=== PATIENT | female | born 1945 | race Caucasian/White ===

== ENCOUNTER 2018-12-29 08:17 | Day surgery (SDC) | payer OTHER ==
[2018-12-29] MEDS ORDERED: Ringers Lactate 1,000 ML IV ONE (08:34)
[2018-12-29] MEDS ORDERED: FENTANYL CITR 100 MCG/2 ML ONE (10:40)
[2018-12-29] MEDS ORDERED: PROPOFOL 200 MG/20 ML VIAL IV ONE ×2 (10:40→11:18)
[2018-12-29] MEDS ORDERED: LIDOCAINE 2% MPF 5 ML VIAL ONE (10:41)
[2018-12-29] MEDS ORDERED: MIDAZOLAM HCL 2 MG/2 ML INJ ONE (10:41)
[2018-12-29] MEDS ORDERED: LIDOCAINE 1% W/EPI 1:100,000 MDV 20 ML VIAL ONE (10:44)
[2018-12-29] MEDS ORDERED: NA CHLORIDE 0.9% 1,000 ML ONE (10:45)
--- NOTE | 2018-12-29 11:08 | EKG ---
Test Date: 2018-12-29 Test Time: 09:19:28 Packaging Line Attendant: MOOK MEASUREMENT RESULTS: Intervals: Rate: 64 MO: 200 QRSD: 74 QT: 398 QTc: 410 [place]: P: 64 MO: 200 QRS: -3 T: 23 INTERPRETIVE STATEMENTS: Normal sinus rhythm Cannot rule out Anterior infarct, age undetermined Abnormal ECG No previous ECG available for comparison Electronically Signed On 12-29-18 11:06:52 CDT by Rex Gruber
== END 2018-12-29 12:17 | disposition home or self-care (01) ==
LOC: OR 08:17
PROVIDERS: ATTEND Obstetrics & Gynecology
PROC: 0UJD8ZZ Inspection of Uterus and Cervix, Via Natural or Artificial Opening Endoscopic (ICD-10-PCS; 2018-12-29)
PROC: 0UDB7ZX Extraction of Endometrium, Via Natural or Artificial Opening, Diagnostic (ICD-10-PCS; principal; 2018-12-29 09:30)
DX: N95.0 Postmenopausal bleeding (principal); N95.2 Postmenopausal atrophic vaginitis; I10 Essential (primary) hypertension; I25.10 Atherosclerotic heart disease of native coronary artery without angina pectoris; Z87.410 Personal history of cervical dysplasia; Z87.891 Personal history of nicotine dependence; Z82.49 Family history of ischemic heart disease and other diseases of the circulatory system
CPT/HCPCS: 93005; 36415; 84132; 88305; 58558; J2704 ×2; J2250; J3010; J7030

== ENCOUNTER 2020-12-21 17:03 | Emergency (ER) | payer OTHER ==
--- NOTE | 2020-12-21 18:45 | RAD REPORT ---
EXAM DESCRIPTION: Judy Yeh And Leanne (2 Views)12/21/2020 6:32 pm CLINICAL HISTORY: Palpitation COMPARISON: 2019 FINDINGS: Calcified granuloma left lung. The lungs appear clear of acute infiltrate. The heart is normal size IMPRESSION: No acute abnormalities displayed
[2020-12-21 19:03] LABS: Absolute Lymphocytes (CBC) 0.7 K/uL (0.7-4.9); Basophils % 0.7 % (0-1.3); Hematocrit 40.6 % (36.0-45.0); Lymphocytes % 12.3 % (15.3-44.8); MPV 7.4 fL (7.6-11.3)
[2020-12-21 19:05] LABS: Protime INR 0.91
[2020-12-21 19:17] LABS: ALT/SGPT 24 U/L (12-78); AST/SGOT 17 U/L (15-37); Albumin 4.1 g/dL (3.4-5.0); Alkaline Phosphatase 59 U/L (45-117); BUN Blood Urea Nitrogen 18 mg/dL (7-18); Bicarbonate 27 mmol/L (21-32); Bilirubin Direct < 0.1 mg/dL (0-0.2); Bilirubin Total 0.3 mg/dL (0.2-1.0); Glucose Level 101 mg/dL (74-106); Magnesium 2.2 mg/dL (1.8-2.4); NT PRO-BNP 265 pg/mL (<450); Potassium 4.2 mmol/L (3.5-5.1); Protein, Total 7.8 g/dL (6.4-8.2); Sodium Level 141 mmol/L (136-145); Troponin (Emerg Dept Use Only) < 0.02 ng/mL (0.0-0.045)
[2020-12-21 19:57] LABS: Urine Blood Trace-intact (Negative); Urine Glucose Negative (Negative); Urine Protein Negative (Negative); Urine Specific Gravity 1.025 (1.005-1.030); Urine pH 5.5 (5.0-7.0)
--- NOTE | 2020-12-21 20:01 | RAD REPORT ---
EXAM DESCRIPTION: CT - Head Brain Wo Cont - 12/21/2020 7:43 pm CLINICAL HISTORY: dizziness COMPARISON: 2007 TECHNIQUE: Computed axial tomography of the head was obtained. IV contrast was not requested. All CT scans are performed using dose optimization technique as appropriate and may include automated exposure control or mA/KV adjustment according to patient size. FINDINGS: An intracranial bleed is not seen . The ventricles are normal in caliber. No extra-axial fluid collection is noted. Mild low-density areas within periventricular, deep and subcortical white matter likely represent is chemic changes secondary to small vessel disease. Fluid within the sinuses/ mastoids is not seen. IMPRESSION: No acute intracranial abnormality is seen. If patient's symptoms persist MRI of the bra in would be recommended.
--- NOTE | 2020-12-21 20:54 | EDPHYS ---
Physician Documentation [facility] Name: Isabel Wrihgt Age: 75 yrs Sex: Female : 1945 Arrival Date: 12/21/2020 Time: 17:05 Bed DIS3 Private MD: Joseph Ryder T ED Physician Joce Presley HPI: 12/21 19:31 This 75 yrs old Female presents to ER via Ambulatory with complaints of Blood mh7 Pressure Problem. 19:31 The patient presents with dizziness, lightheadedness. Onset: The symptoms/episode mh7 began/occurred this morning, today. Context: occurred at home, occurred while the patient was standing, just prior to the episode the patient experienced no apparent symptoms. Modifying factors: The symptoms are alleviated by nothing, the symptoms are aggravated by nothing. Associated signs and symptoms: Pertinent positives: Fluctuation of blood pressure, Pertinent negatives: abdominal pain, agitation, ataxia, blurred vision, chest pain, combativeness, confusion, diaphoresis, focal weakness, head injury, headache, nausea, near-syncope, numbness, palpitations, seizure, shortness of breath, syncope, tingling, vomiting. Severity of symptoms: At their worst the symptoms were moderate this morning, in the emergency department the symptoms have resolved and did so earlier today. Patient's baseline: Neuro: alert and fully oriented, Motor: no deficits, Ambulation: walks without assistance, Speech: normal. 19:31 Patient reports episode of dizziness, lightheaded this morning. She also noted mh7 fluctuations in her blood pressure from 90s systolic to 200 systolic during the day. She denies any headache, chest pain, abdominal pain, shortness of breath, nausea, vomiting, fever, cough, numbness/tingling, or weakness. She notes that she has been feeling stressed this week due to abnormal mammogram.. Historical: - Allergies: 18:14 Codeine; kg - Home Meds: 18:14 atenolol 50 mg oral tab 1 tab once daily [Active]; montelukast 10 mg oral tab 1 tab kg once daily [Active]; Benadryl 25 mg Oral cap 1 cap once daily [Active]; - PMHx: 18:14 Hypertension; kg - PSHx: 18:14 None; kg - Immunization history:: Adult Immunizations not up to date, Client reports receiving the 2nd dose of the Covid vaccine, Date received: June 17, 2020 [facility] Client reports receiving the 1st dose of the Covid vaccine, May 2020 [facility]. - Social history:: Smoking status: Patient/guardian denies using tobacco, but has a distant history of tobacco abuse, Patient uses alcohol, weekly. ROS: 19:31 Constitutional: Negative for fever, chills, and weight loss, Eyes: Negative for injury, mh7 pain, redness, and discharge, ENT: Negative for injury, pain, and discharge, Neck: Negative for injury, pain, and swelling, Cardiovascular: Negative for chest pain, palpitations, and edema, Respiratory: Negative for shortness of breath, cough, wheezing, and pleuritic chest pain, Abdomen/GI: Negative for abdominal pain, nausea, vomiting, diarrhea, and constipation, Back: Negative for injury and pain, : Negative for injury, bleeding, discharge, and swelling, MS/Extremity: Negative for injury and deformity, Skin: Negative for injury, rash, and discoloration, Neuro: Negative for headache, weakness, numbness, tingling, and seizure, Psych: Negative for depression, anxiety, suicide ideation, homicidal ideation, and hallucinations, Allergy/Immunology: Negative for hives, rash, and allergies, Endocrine: Negative for neck swelling, polydipsia, polyuria, polyphagia, and marked weight changes, Hematologic/Lymphatic: Negative for swollen nodes, abnormal bleeding, and unusual bruising. 19:31 : Positive for urinary frequency, 2 days ago. Exam: 19:31 Constitutional: This is a well developed, well nourished patient who is awake, alert, mh7 and in no acute distress. Head/Face: Normocephalic, atraumatic. Eyes: Pupils equal round and reactive to light, extra-ocular motions intact. Lids and lashes normal. Conjunctiva and sclera are non-icteric and not injected. Cornea within normal limits. Periorbital areas with no swelling, redness, or edema. Neck: Trachea midline, no thyromegaly or masses palpated, and no cervical lymphadenopathy. Supple, full range of motion without nuchal rigidity, or vertebral point tenderness. No Meningismus. Chest/axilla: Normal chest wall appearance and motion. Nontender with no deformity. No lesions are appreciated. Cardiovascular: Regular rate and rhythm with a normal S1 and S2. No gallops, murmurs, or rubs. Normal PMI, no JVD. No pulse deficits. Respiratory: Lungs have equal breath sounds bilaterally, clear to auscultation and percussion. No rales, rhonchi or wheezes noted. No increased work of breathing, no retractions or nasal flaring. Abdomen/GI: Soft, non-tender, with normal bowel sounds. No distension or tympany. No guarding or rebound. No evidence of tenderness throughout. Back: No spinal tenderness. No costovertebral tenderness. Full range of motion. Skin: Warm, dry with normal turgor. Normal color with no rashes, no lesions, and no evidence of cellulitis. MS/ Extremity: Pulses equal, no cyanosis. Neurovascular intact. Full, normal range of motion. Neuro: Awake and alert, GCS 15, oriented to person, place, time, and situation. Cranial nerves II-XII grossly intact. Motor strength 5/5 in all extremities. Sensory grossly intact. Cerebellar exam normal. Normal gait. Psych: Awake, alert, with orientation to person, place and time. Behavior, mood, and affect are within normal limits. Vital Signs: 17:59 BP 183 / 86; Pulse 86; Resp 20; Temp 97.8(TE); Pulse Ox 96% on R/A; Weight 75.75 kg; kg Height 5 ft. 4 in. (162.56 cm); Pain 0/10; 20:06 BP 183 / 82 LA Supine (auto/reg); Pulse 65; Resp 16; Pulse Ox 100% ; dh4 20:06 BP 173 / 92 LA Standing (auto/reg); Pulse 80; Resp 16; Pulse Ox 100% ; dh4 20:06 BP 165 / 80 LA Sitting (auto/reg); Pulse 67; Resp 16; Pulse Ox 100% on R/A; dh4 17:59 Body Mass Index 28.67 (75.75 kg, 162.56 cm) kg MDM: 20:50 Differential diagnosis: cardiac arrhythmia, CVA, hypovolemia, idiopathic dizziness, mh7 near-syncope, sepsis, syncope, TIA, vertigo, Hypertension, hypotension. Data reviewed: vital signs, nurses notes, lab test result(s), cardiac enzymes, CBC, electrolytes, urinalysis, EKG, radiologic studies, CT scan, plain films. Data interpreted: Pulse oximetry: on room air is 100 %. Interpretation: normal. Counseling: I had a detailed discussion with the patient and/or guardian regarding: the historical points, exam findings, and any diagnostic results supporting the discharge/admit diagnosis, the presence of at least one elevated blood pressure reading (>120/80) during this emergency department visit, lab results, radiology results, the need for outpatient follow up, a law enforcement director, to return to the emergency department if symptoms worsen or persist or if there are any questions or concerns that arise at home. Response to treatment: the patient's symptoms have resolved after treatment, the patient's blood pressure is in an acceptable range, mental status has returned to baseline, the patient no longer shows bradycardia, the patient is not short of breath, the patient is not tachycardic, the patient's pain is gone, the patient's temperature has normalized, the patient is now symptom free, patient is well hydrated. 20:53 Patient medically screened. 7 12/21 18:18 Order name: Basic Metabolic Panel kg 12/21 18:18 Order name: CBC with Diff; Complete Time: 19:37 kg 12/21 18:18 Order name: LFT's; Complete Time: 19:37 kg 12/21 18:18 Order name: Magnesium; Complete Time: 19:37 kg 12/21 18:18 Order name: NT PRO-BNP; Complete Time: 19:37 kg 12/21 18:18 Order name: PT-INR; Complete Time: 19:37 kg 12/21 18:18 Order name: Troponin (emerg Dept Use Only); Complete Time: 19:37 kg 12/21 18:18 Order name: EKG; Complete Time: 18:18 kg 12/21 18:18 Order name: Cardiac monitoring; Complete Time: 18:18 kg 12/21 18:18 Order name: Basic Metabolic Panel; Complete Time: 19:37 EDMS 12/21 18:31 Order name: Chest Pa And Lat (2 Views); Complete Time: 18:56 EDMS 12/21 19:27 Order name: CT Head Brain wo Cont; Complete Time: 20:43 mh7 12/21 19:57 Order name: Urine Dipstick-Ancillary; Complete Time: 20:43 EDMS 12/21 18:18 Order name: EKG - Nurse/Tech; Complete Time: 18:18 kg 12/21 18:18 Order name: IV Saline Lock; Complete Time: 18:51 kg 12/21 18:18 Order name: Labs collected and sent; Complete Time: 18:51 kg 12/21 18:18 Order name: O2 Per Protocol; Complete Time: 18:51 kg 12/21 18:18 Order name: O2 Sat Monitoring; Complete Time: 19:34 kg 12/21 19:27 Order name: Urine Dipstick-Ancillary (obtain specimen); Complete Time: 19:57 7 12/21 19:27 Order name: Orthostatics; Complete Time: 20:54 mh7 Administered Medications: No medications were administered Disposition Summary: 12/21/20 20:53 Discharge Ordered Location: Home [facility] Problem: new [facility] Symptoms: have improved [facility] Condition: Stable [facility] Diagnosis - Dizziness and giddiness 7 - Essential (primary) hypertension [facility] Followup: [facility] - With: Private Physician - When: 1 - 2 days - Reason: Worsening of condition, Recheck today's complaints, Continuance of care, Re-evaluation by your physician Followup: [facility] - With: Kunal Jang MD - When: 1 - 2 days - Reason: If symptoms return, Worsening of condition, Recheck today's complaints, Continuance of care, Re-evaluation by your physician Discharge Instructions: - Discharge Summary Sheet 7 - Dizziness [facility] - Hypertension, Adult, [id number] [facility] Forms: - Medication Reconciliation Form [facility] - Thank You Letter [facility] - Antibiotic Education [facility] - Prescription Opioid Use [facility] Signatures: Dispatcher [employer] EDMS Cayetano Llanos PA PA jmm Holmes, Maurice, MD MD 7 Joanna Gorman, RN RN kg Corrections: (The following items were deleted from the chart) 18:31 18:18 Chest Single View+[email or web address].[email or web address] ordered. EDMS EDMS
--- NOTE | 2020-12-21 20:54 | ER ---
Nurse's Notes [facility] Name: Isabel Wright Age: 75 yrs Sex: Female : 1945 Arrival Date: 12/21/2020 Time: 17:05 Bed DIS3 Private MD: Joseph Ryder T Diagnosis: Dizziness and giddiness;Essential (primary) hypertension Presentation: 12/21 17:59 Chief complaint: Patient states: Pt stated, " My blood pressure has been all over the kg place. I had a dizziness episode while doing my hair. It went away then I had another one and my blood pressure was really low." I called Dr. Luna and got an appointment for Thursday morning but blood pressure cuff was saying I have a irregular pulse and Mala never had that. I've been under a lot of stress this week." Pt home log 8:30- 91/62 HR 78, 09:50- 165/93 HR 79, 10:30- 143/85 HR 66, 11:40- 145/94 HR 66, 16:30- 162/94 HR 58. Coronavirus screen: Client denies travel out of the [place] in the last 14 days. At this time, unable to obtain information related to travel outside the [place] At this time, the client does not indicate any symptoms associated with coronavirus-19. Ebola Screen: Patient negative for fever greater than or equal to 101.5 degrees Fahrenheit, and additional compatible Ebola Virus Disease symptoms Patient denies exposure to infectious person. Patient denies travel to an Ebola-affected area in the 21 days before illness onset. No symptoms or risks identified at this time. Initial Sepsis Screen: Does the patient meet any 2 criteria? No. Patient's initial sepsis screen is negative. Does the patient have a suspected source of infection? No. Patient's initial sepsis screen is negative. Risk Assessment: Do you want to hurt yourself or someone else? Patient reports no desire to harm self or others. Onset of symptoms was December 21, 2020 at 08:30. 17:59 Method Of Arrival: Ambulatory kg 17:59 Acuity: KARTHIK 3 kg Triage Assessment: 18:14 General: Appears in no apparent distress. Behavior is calm, cooperative, appropriate kg for age, quiet. Pain: Denies pain. Historical: - Allergies: 18:14 Codeine; kg - Home Meds: 18:14 atenolol 50 mg oral tab 1 tab once daily [Active]; montelukast 10 mg oral tab 1 tab kg once daily [Active]; Benadryl 25 mg Oral cap 1 cap once daily [Active]; - PMHx: 18:14 Hypertension; kg - PSHx: 18:14 None; kg - Immunization history:: Adult Immunizations not up to date, Client reports receiving the 2nd dose of the Covid vaccine, Date received: June 17, 2020 Client reports receiving the 1st dose of the Covid vaccine, May 2020. - Social history:: Smoking status: Patient/guardian denies using tobacco, but has a distant history of tobacco abuse, Patient uses alcohol, weekly. Screenin:22 Abuse screen: Denies threats or abuse. Nutritional screening: No deficits noted. em Tuberculosis screening: No symptoms or risk factors identified. Fall Risk None identified. Assessment: 19:22 General: Appears in no apparent distress. comfortable, Behavior is calm, cooperative, em appropriate for age. Neuro: Level of Consciousness is awake, alert, obeys commands, Oriented to person, place, time, situation. Cardiovascular: Capillary refill < 3 seconds Patient's skin is warm and dry. Respiratory: Airway is patent Respiratory effort is even, unlabored, Respiratory pattern is regular, symmetrical. Derm: Skin is intact, is thin, Skin is pink, warm \\T\\ dry. Musculoskeletal: Capillary refill < 3 seconds, Range of motion: intact in all extremities. 20:58 Reassessment: Patient appears in no apparent distress at this time. Patient and/or em family updated on plan of care and expected duration. Pain level reassessed. Patient is alert, oriented x 3, equal unlabored respirations, skin warm/dry/pink. Vital Signs: 17:59 BP 183 / 86; Pulse 86; Resp 20; Temp 97.8(TE); Pulse Ox 96% on R/A; Weight 75.75 kg; kg Height 5 ft. 4 in. (162.56 cm); Pain 0/10; 20:06 BP 183 / 82 LA Supine (auto/reg); Pulse 65; Resp 16; Pulse Ox 100% ; dh4 20:06 BP 173 / 92 LA Standing (auto/reg); Pulse 80; Resp 16; Pulse Ox 100% ; dh4 20:06 BP 165 / 80 LA Sitting (auto/reg); Pulse 67; Resp 16; Pulse Ox 100% on R/A; dh4 17:59 Body Mass Index 28.67 (75.75 kg, 162.56 cm) kg ED Course: 17:05 Patient arrived in ED. am2 17:05 Joseph Ryder MD is Private Physician. am2 18:14 Triage completed. kg 18:14 Arm band placed on right wrist. kg 18:31 Chest Pa And Lat (2 Views) In Process Unspecified. EDMS 18:40 Cayetano Llanos PA is PHCP. m 18:41 Kyle Hernandez MD is Attending Physician. [facility] 18:47 Initial lab(s) drawn, by me, sent to lab. Inserted saline lock: 20 gauge in right dh3 antecubital area, using aseptic technique. Blood collected. 19:01 Joce Presley MD is Attending Physician. [facility] 19:22 Jagdish Aleman, RN is Primary Nurse. em 19:22 Patient has correct armband on for positive identification. em 19:43 CT Head Brain wo Cont In Process Unspecified. EDMS 20:52 Kunal Jang MD is Referral Physician. 7 20:58 No provider procedures requiring assistance completed. IV discontinued, intact, em bleeding controlled, No redness/swelling at site. Pressure dressing applied. Administered Medications: No medications were administered Outcome: 20:53 Discharge ordered by MD. 7 20:58 Discharged to home ambulatory. em 20:58 Condition: stable 20:58 Discharge instructions given to patient, Instructed on discharge instructions, follow up and referral plans. Demonstrated understanding of instructions, follow-up care. 20:58 Patient left the ED. em Signatures: Dispatcher [employer] EDMS Cayetano Llanos PA PA [facility] Jagdish Aleman, RN RN em Christa Ulloa 2 Sayda Corado [facility] Panchito Haney [facility] Joce Presley MD MD [facility] Joanna Gorman, PATRICIO CURRY kg
--- NOTE | 2020-12-23 10:44 | EKG ---
Test Date: 2020-12-21 Test Time: 18:13:21 Trash Man: SUNNY MEASUREMENT RESULTS: Intervals: Rate: 77 MS: 172 QRSD: 70 QT: 374 QTc: 423 [place]: P: MS: 172 QRS: -16 T: 18 INTERPRETIVE STATEMENTS: Normal sinus rhythm Anterior infarct, age undetermined Abnormal ECG Compared to ECG 12/29/2018 09:19:28 No significant changes Electronically Signed On 12-23-20 10:40:12 CDT by Kunal Jang
== END 2020-12-21 20:58 | disposition home or self-care (01) ==
LOC: ER 17:03
DX: I10 Essential (primary) hypertension (principal); Z88.5 Allergy status to narcotic agent
CPT/HCPCS: 36415; 70450; 71046; 80048; 80076; 81003; 83735; 83880; 84484; 85025; 85610; 93005; 99284

== ENCOUNTER 2021-06-03 03:08 | Inpatient (IN) | payer OTHER ==
--- OUTSIDE RECORDS SUMMARY | 2021-06-03 03:16 | XMS REPORT | Continuity of Care Document ---
:1945 Author Organization [facility] t Address [address] [place] [address] Care Team Providers Name Role Phone [phone] Primary Care Physician Unavailable SYSTEM, NOT IN Attending Clinician Unavailable Anca Espinoza APN Attending Clinician Anca ESPINOZA Attending Clinician Unavailable Payers Payer Name Policy Type Policy Effective Date Expiration Date Sour ce Number MEDICAREMEDICARE PART [id number] 2010 MD Green A AND 00:00:00 [id number] 2011-P [id number] [facility] [address] [place] [phone] [id number] 2010 MD Green [id number] 00:00:00 [phone] [place] [phone] Problems This patient has no known problems. Allergies, Adverse Reactions, Alerts This patient has no known allergies or adverse reactions. Family History Family Member Diagnosis Comments Start Date Stop Date Source Maternal grandmother -Other cancer Naomi Peter Social History Social Habit Start Date Stop Date Quantity Comments Source History YOUUT MD Green Alcohol Frequency History ISAAC Green Alcohol Std Drinks History ISAAC Green Alcohol Binge Cigarettes smoked 2021-01-29 2021-01-29 MD Hola trejo current (pack per 00:00:00 00:00:00 day) - Reported Cigarette 2021-01-29 2021-01-29 MD Green pack-years 00:00:00 00:00:00 Tobacco use and 2021-01-29 2021-01-29 Smokeless tobacco MD Green exposure 00:00:00 00:00:00 non-user Alcohol intake 2021-01-29 2021-01-29 Current drinker of MD Green 00:00:00 00:00:00 alcohol (finding) History SDOH 2021-01-29 2021-01-29 splitting a bottle MD Jaja onofre Alcohol Comment 00:00:00 00:00:00 w/ at dinner History of tobacco 1965-05-04 1995-12-19 Current smoker MD Green use 00:00:00 00:00:00 Sex [birth year] At [birth year] F MD Leal on 00:00:00 00:00:00 Smoking Status Start Date Stop Date Source Ex-smoker 2021-01-29 00:00:00 2021-01-29 00:00:00 Arnaldo son Medications Ordered Filled Start Stop Current Ordering Indication Dosage Frequency Signature Comments Components Source Medication Medication Date Date Medication? Clinician (SIG) Name Name diphenhydra Yes 25mg Take 25 mg MD mine HCl 9-28 by mouth Anderso (BENADRYL 08:58: as needed. n ALLERGY 34 ORAL) atenolol Yes 1{tbl} Take 1 MD (TENORMIN) 9-10 tablet by Hola rso 50 mg 00:00: mouth n tablet 00 daily. montelukast Yes 1{tbl} Take 1 MD (SINGULAIR) 7-12 tablet by And erso 10 mg 00:00: mouth n tablet 00 daily. Restasis Yes as needed. 0.05 % 6-08 Anderso ophthalmic 00:00: n emulsion 00 Immunizations Ordered Immunization Filled Immunization Date Status Commen ts Source Name Name Moderna SARS-CoV-2 2020-06-17 Completed MD And erson Vaccination 00:00:00 Moderna SARS-CoV-2 2020-05-23 Completed MD And erson Vaccination 00:00:00 Vital Signs Vital Name Observation Time Observation Value Comments Source Systolic blood pressure 2021-01-29 14:37:00 160 mm[Hg] MD Green Diastolic blood pressure 2021-01-29 14:37:00 80 mm[Hg] MD Green Body height 2021-01-29 13:45:00 162 cm MD Arnaldo benitez Body weight 2021-01-29 13:45:00 76 kg MD Arnaldo benitez BMI 2021-01-29 13:45:00 28.96 kg/m2 MD Arnaldo benitez Procedures Procedure Date / Time Performed Performing Clinician Sourc e US BREAST COMPLETE RIGHT 2021-01-29 19:31:00 Lois Espinoza MD US CHEST 2021-01-29 19:31:00 Lois Espinoza MD MAMMO DIGITAL DIAGNOSTIC 2021-01-29 18:16:00 Lois Espinoza MD BILATERAL W HIGINIO OSI MAMMOGRAPHY UNILATERAL 2020-12-20 04:36:00 Lois Espinoza RIGHT OSI US BREAST 2020-12-20 04:35:00 Lois Espinoza MD OSI MAMMO BILATERAL 2020-11-23 04:31:00 Lois Espinoza MD Plan of Care Planned Activity Planned Date Details Comments Source Future Scheduled Test 2020-11-14 00:00:00 COVID-19 Vaccination (3 MD Green - Booster) [code = COVID-19 Vaccination (3 - Booster)] Encounters Start End Encounter Admission Attending Care Care Encounter Source Date/Time Date/Time Type Type Clinicians Facility Department ID 2020-12-27 Outpatient SYSTEM, RICARDO RICARDO [id number] 08:29:20 PROVIDER Elvis khan 2021-01-29 2021-01-29 Outpatient EL RICARDO MDA [id number] 13:15:00 23:59:00 Elvisdevendra khan 2021-01-29 2021-01-29 Outpatient LOULOU ESPINOZA RICARDO MDA [id number] 14:35:55 15:01:18 LIOS khan 2021-01-29 2021-01-29 Outpatient EL RICARDO MDA [id number] 11:44:06 13:14:00 Elvis khan 2021-01-29 2021-01-29 Outpatient LOULOU LOGARICARDO MDA [id number] 08:28:30 09:32:45 LOIS khan 2021-01-29 2021-01-29 Outpatient EL RICARDO MDA [id number] 08:23:42 08:28:53 Elvis o n 2021-01-11 2021-01-11 Outpatient LOULOU ESPINOZA, MDA MDA [id number] 21:56:37 21:56:37 LOIS Elvis o n 2021-01-11 2021-01-11 Outpatient LOULOU ESPINOZA MDA MDA [id number] 21:56:37 21:56:37 LOIS Elvis o n 2021-01-11 2021-01-11 Outpatient LOULOU ESPINOZA MDA MDA [id number] MD 21:56:35 21:56:35 LOIS Elvis o n 2021-01-11 2021-01-11 Outpatient LOULOU ESPINOZA, MDA MDA [id number] 21:56:34 21:56:34 LOIS Elvis o n 2021-01-11 2021-01-11 Outpatient LOULOU ESPINOZA MDA MDA [id number] 21:56:32 21:56:32 LOIS Elvis o n 2021-01-11 2021-01-11 Outpatient LOULOU ESPINOZA, MDA MDA [id number] MD 21:56:32 21:56:32 LOIS Elvis o n 2021-01-11 2021-01-11 Outpatient LOULOU ESPINOZA MDA MDA [id number] 21:56:31 21:56:31 LOIS Elvis o n 2021-01-11 2021-01-11 Outpatient LOULOU ESPINOZA MDA MDA [id number] 21:56:30 21:56:30 LOIS Elvis o n Results Test Description Test Time Test Comments Results Result Comments Source Mammography Digital Diagnostic Bilateral with Higinio 2021-01-03 8 20:30:49 Test Item Value Reference Range Interpretation Comme nts IMP (test code = IMP) Focal asymmetry in the right breast requires additional imaging evaluation. Anultrasound exam is recommended. BI-RADS Category 0:Incomplete: Needs Additional Imaging Evaluation PXN (test code = PXN) Medina Tamayo MD - 01/29/2021 CLINICAL INDICATION:Patient is a 75 year old female and is seen for other signs and symptoms in thebreast MAMMO DIGITAL DIAGNOSTIC BILATERAL W TOMOCOMPARISON:The present examination has been compared to prior imaging studies performed atan outside location on 08/17/2017, 09/23/2018, 11/21/2019 and 11/22/2020. FINDINGS:There are scattered areas of fibroglandular density. There is a focal asymmetry measuring 0.6 centimeters in the right breast upperinner quadrant at 1 o'clock located 7 centimeters from the nipple. This mayrepresent fibroadenoma of fibrocystic change. Patient presents for second-opinion interpretation. In the left breast, no dominant mass, distortion, or suspicious calcificationsare identified. Tomosynthesis performed in CC and MLO projections. IMPRESSION:Focal asymmetry in the right breast requires additional imaging evaluation. Anultrasound exam is recommended. BI-RADS Category 0:Incomplete: Needs Additional Imaging Evaluation Lab Interpretation (test code = Abnormal 17997-4) MD Green
--- OUTSIDE RECORDS SUMMARY | 2021-06-03 03:16 | XMS REPORT | Clinical Summary ---
:1945 Author Organization [facility] MD Mcint[facility] Address [address] [place] [address] Care Team Providers Name Role Phone Regla Marin CUCO Unavailable Lois Alas APN Primary Care Provider Allergies Active Allergy Reactions Severity Noted Date Comments Codeine Itching 01/29/2021 Medications Medication Sig Dispensed Refills Start Date End Date Status montelukast (SINGULAIR) Take 1 tablet 0 11/12/2020 Active 10 mg tablet by mouth daily. atenolol (TENORMIN) 50 mg Take 1 tablet 0 01/11/2021 Active tablet by mouth daily. Restasis 0.05 % as needed. 0 10/09/2020 Ac tive ophthalmic emulsion diphenhydramine HCl Take 25 mg by 0 Active (BENADRYL ALLERGY ORAL) mouth as needed. 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 Lesion of breas t 01/29/2021 NPR Patient Access Services 01/29/2021 Travel 01/14/2021 Orders Only Cancer Prevention Lois Alas APN 01/11/2021 Ancillary Procedure Radiology Lois Alas Cancer Anca MACHINE OPERATOR HAY STACKER 01/11/2021 Ancillary Procedure Radiology Lois Alas Cancer Y, 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 OPERATOR HAY STACKER 01/11/2021 Ancillary Procedure Radiology Lois Alas Cancer Y, MACHINE OPERATOR HAY STACKER 01/11/2021 Ancillary Procedure Radiology Lois Alas Cancer Y, MACHINE OPERATOR HAY STACKER 01/11/2021 Ancillary Procedure Radiology Lois Alas Cancer Y, MACHINE OPERATOR HAY STACKER 01/11/2021 Ancillary Procedure Radiology Lois Alas Cancer Y, MACHINE OPERATOR HAY STACKER 01/11/2021 Ancillary Procedure Radiology Lois Alas Cancer Y, MACHINE OPERATOR HAY STACKER 01/11/2021 Ancillary Procedure Radiology Lois Alas Cancer Y, MACHINE OPERATOR HAY STACKER 12/28/2020 Orders Only Breast Undiagnosed Lois Alas Mammogra phy abnormal Y, MACHINE OPERATOR HAY STACKER (Primary Dx) 12/28/2020 Travel after 06/03/2020 Immunizations Name Administration Dates Next Due Moderna SARS-CoV-2 Vaccination 06/17/2020, 05/23/2020 Surgical History Surgery Date Site/Laterality Comments CARDIAC CATHETERIZATION 05/04/2015 - 05/03/2016 BREAST CYST ASPIRATION 05/04/2006 - 05/03/2007 Don e via outside facility. Patien t unsure of which breast this was done in. CRYOTHERAPY ENDOMETRIAL ABLATION Medical History Medical History Date Comments Hypertension 2005 maybe earlier Allergic rhinitis adult onset Cyst of breast 2006 Pneumonia 1948 Menopause 2000 Family History Medical History Relation Name Comments -Other cancer Maternal Grandmother Tish Leonardo I think Fal lopian tube spread to stomach DOD 11/19 58 Relation Name Status Comments Maternal Grandmother Tish Leonardo Social History Tobacco Use Types Packs/Day Years Used Date Former Smoker Cigarettes 0.25 30 05/04/1965 - 0 12/19/1995 Smokeless Tobacco: Never Used Alcohol Use Standard Drinks/Week Comments Yes 9 (1 standard drink = 0.6 oz pure splitt ing a bottle w/ at alcohol) dinner Alcohol Habits Answer Date Recorded How often do you have a drink Not asked containing alcohol? How many drinks containing alcohol Not asked do you have on a typical day when you are drinking? How often do you have six or more Not asked drinks on one occasion? Comment: splitting a bottle w/ at 01/30/20 21 dinner Sex Assigned at Date Recorded Female 12/26/2020 5:13 PM CDT Job Start Date Occupation Industry Not on file Not on file Not on file Obstetrics History Para Term AB IAB SAB Ectopic Multiple Living Live Births 2 2 2 Date Outcome GA Total Labor/2nd/3rd Weight Sex Delivery Anes PTL Page A 1 A5 Name Clin Labor Para Para Comments Menarche: at age 13 Parity: at age 26 OBC: used intermittently 5 years HRT: yes, but unsure of the time Last pap smear: OS 2019 normal Abn ormal pap smear: yes 1-2 remote history for which underwent cryotherapy. Last colonoscopy: none. Cologuard sent i n by patient on 01/28/2021 Last Filed Vital Signs Vital Sign Reading Time Taken Comments Blood Pressure 160/80 01/29/2021 9:37 AM CDT Pulse - - Temperature - - Respiratory Rate - - Oxygen Saturation - - Inhaled Oxygen Concentration - - Weight 76 kg (167 lb 8.8 oz) 01/29/2021 8:45 AM CDT Height 162 cm (5' 3.78") 01/29/2021 8:45 AM CDT Body Mass Index 28.96 01/29/2021 8:45 AM CDT Plan of Treatment Health Maintenance Due Date Last Done Comments COVID-19 Vaccination (3 - Booster) 11/14/2020 06/17/2020, 0 05/23/2020 Procedures Procedure Name Priority Date/Time Associated Diagnosis Comme nts US CHEST Routine 01/29/2021 2:31 Mammography abnormal Res ults for this PM CDT procedure are i n the results section. US BREAST COMPLETE Routine 01/29/2021 2:31 Mammography abnorm al Results for this RIGHT PM CDT procedure are i n the results section. MAMMO DIGITAL Routine 01/29/2021 1:16 Mammography abnormal Re sults for this DIAGNOSTIC BILATERAL PM CDT procedu re are in W HIGINIO the results section. OSI MAMMOGRAPHY Routine 12/19/2020 11:36 Cancer Results for this UNILATERAL RIGHT PM CDT procedure a re in the results section. OSI US BREAST Routine 12/19/2020 11:35 Cancer Results fo r this PM CDT procedure are i n the results section. OSI MAMMO BILATERAL Routine 11/22/2020 11:31 Cancer Resu lts for this PM CDT procedure are i n the results section. after 06/03/2020 Results US Chest for Breast Ultrasound (Add-on Only) (01/29/2021 2:31 PM CDT) Specimen Impressions [id number] - 01/29/2021 3:32 PM CDT Probably benign hypoechoic focus in righ t breast 1:00 position as described above. ACR BI-RADS Category: 3. Probably benign . Recommend 6-month follow-up mammography and ultrasound of right breast. Above communicated to referring clinician Lois Alas at time of exam on 01/29/21. Narrative [id number] - 01/29/2021 3:32 PM CDT FULL RESULT: Examination: US BREAST COMPLETE RIGHT, U S CHEST 01/29/2021 2:31 PM Clinical History: 75-year-old woman with focal asymmetry at mammography, for which patient presents for second opinion interpretation.. Indication: Abnormal mammogram Comparison: Mammography dated January 29, 2021. The submitted [facility] ultrasound images are not viewable, as they could not be displayed on PACS (likely due to technical/IT limitations). Technique: Real-time sonographic imaging of the right breast (including all 4 quadrants and retroareolar region) was performed. Ultrasound imaging was performed of the right axilla (levels I, II, and II I) and right chest/mediastinum (to evalu ate the internal mammary lymph nodes). Images were obtained in multiple scanning planes. Findings: RIGHT BREAST: In the right breast 1:00 p osition 7 cm from nipple, there is an oval hypoechoic focus measuring 0.5 x 0.4 x 0.2 cm. This may be a small fibroadenoma versus fibrocystic change. Recommend short-term follow-up ultrasound in 6 months. RIGHT REGIONAL DAWOOD BASINS: No adenopat hy seen. Procedure Note Medina Tamayo MD - 01/29/2021 FULL RESULT: Examination: US BREAST COMPLETE RIGHT, U S CHEST 01/29/2021 2:31 PM Clinical History: 75-year-old woman with focal asymmetry at mammography, for which patient presents for second opinion interpretation.. Indication: Abnormal mammogram Comparison: Mammography dated January 29, 2021. The submitted [facility] ultrasound images are not viewable, as they could not be displayed on PACS (likely due to technical/IT limitations). Technique: Real-time sonographic imaging of the right breast (including all 4 quadrants and retroareolar region) was performed. Ultrasound imaging was performed of the right axilla (levels I, II, and III) and right chest/mediastinum (to evaluate the inter nal mammary lymph nodes). Images were obtained in multiple scanning planes. Findings: RIGHT BREAST: In the right breast 1:00 p osition 7 cm from nipple, there is an oval hypoechoic focus measuring 0.5 x 0.4 x 0.2 cm. This may be a small fibroadenoma versus fibrocystic change. Recommend short-term follow-up ultrasound in 6 months. RIGHT REGIONAL [place]OD BASINS: No adenopat hy seen. IMPRESSION: Probably benign hypoechoic focus in righ t breast 1:00 position as described above. ACR BI-RADS Category: 3. Probably benign . Recommend 6-month follow-up mammography and ultrasound of right breast. Above communicated to referring clinician Lois Alas at time of exam on 01/29/21. Performing Organization Address City/State/ZIP Code Phon e Number [id number] US Breast Complete Right (01/29/2021 2:31 PM CDT) Specimen Impressions [id number] - 01/29/2021 3:32 PM CDT Probably benign hypoechoic focus in righ t breast 1:00 position as described above. ACR BI-RADS Category: 3. Probably benign . Recommend 6-month follow-up mammography and ultrasound of right breast. Above communicated to referring clinician Lois Alas at time of exam on 01/29/21. Narrative [id number] - 01/29/2021 3:32 PM CDT FULL RESULT: Examination: US BREAST COMPLETE RIGHT, U S CHEST 01/29/2021 2:31 PM Clinical History: 75-year-old woman with focal asymmetry at mammography, for which patient presents for second opinion interpretation.. Indication: Abnormal mammogram Comparison: Mammography dated January 29, 2021. The submitted [facility] ultrasound images are not viewable, as they could not be displayed on PACS (likely due to technical/IT limitations). Technique: Real-time sonographic imaging of the right breast (including all 4 quadrants and retroareolar region) was performed. Ultrasound imaging was performed of the right axilla (levels I, II, and II I) and right chest/mediastinum (to evalu ate the internal mammary lymph nodes). Images were obtained in multiple scanning planes. Findings: RIGHT BREAST: In the right breast 1:00 p osition 7 cm from nipple, there is an oval hypoechoic focus measuring 0.5 x 0.4 x 0.2 cm. This may be a small fibroadenoma versus fibrocystic change. Recommend short-term follow-up ultrasound in 6 months. RIGHT REGIONAL DAWOOD BASINS: No adenopat hy seen. Procedure Note Medina Tamayo MD - 01/29/2021 FULL RESULT: Examination: US BREAST COMPLETE RIGHT, U S CHEST 01/29/2021 2:31 PM Clinical History: 75-year-old woman with focal asymmetry at mammography, for which patient presents for second opinion interpretation.. Indication: Abnormal mammogram Comparison: Mammography dated January 29, 2021. The submitted [facility] ultrasound images are not viewable, as they could not be displayed on PACS (likely due to technical/IT limitations). Technique: Real-time sonographic imaging of the right breast (including all 4 quadrants and retroareolar region) was performed. Ultrasound imaging was performed of the right axilla (levels I, II, and III) and right chest/mediastinum (to evaluate the inter nal mammary lymph nodes). Images were obtained in multiple scanning planes. Findings: RIGHT BREAST: In the right breast 1:00 p osition 7 cm from nipple, there is an oval hypoechoic focus measuring 0.5 x 0.4 x 0.2 cm. This may be a small fibroadenoma versus fibrocystic change. Recommend short-term follow-up ultrasound in 6 months. RIGHT REGIONAL DAWOOD BASINS: No adenopat hy seen. IMPRESSION: Probably benign hypoechoic focus in righ t breast 1:00 position as described above. ACR BI-RADS Category: 3. Probably benign . Recommend 6-month follow-up mammography and ultrasound of right breast. Above communicated to referring clinician Lois Alas at time of exam on 01/29/21. Performing Organization Address City/State/ZIP Code Phon e Number [id number] (ABNORMAL) Mammography Digital Diagnostic Bilateral with Higinio (01/29/2021 1:16 PM CDT) Specimen Impressions [facility] - 01/29/2021 3:30 PM CDT Focal asymmetry in the right breast requires additional imaging evaluation. An ultrasound exam is recommended. BI-RADS Category 0: Incomplete: Needs Additional Imaging Lor luation Narrative [facility] - 01/29/2021 3:30 PM CDT CLINICAL INDICATION: Patient is a 75 year old female and is s een for other signs and symptoms in the breast MAMMO DIGITAL DIAGNOSTIC BILATERAL W GISELLE O COMPARISON: The present examination has been compare d to prior imaging studies performed at an outside location on 08/17/2017, 09/23, 11/21/2019 and 11/22/2020. FINDINGS: There are scattered areas of fibroglandu lar density. There is a focal asymmetry measuring 0.6 centimeters in the right breast upper inner quadrant at 1 o'clock located 7 ce ntimeters from the nipple. This may represent fibroadenoma of fibrocystic ch maria del carmen. Patient presents for second-opinion inte rpretation. In the left breast, no dominant mass, di stortion, or suspicious calcifications are identified. Tomosynthesis performed in CC and MLO pr ojections. Procedure Note Medina Tamayo MD - 01/29/2021 CLINICAL INDICATION: Patient is a 75 year old female and is s een for other signs and symptoms in the breast MAMMO DIGITAL DIAGNOSTIC BILATERAL W GISELLE O COMPARISON: The present examination has been compare d to prior imaging studies performed at an outside location on 08/17/2017, 09/23, 11/21/2019 and 11/22/2020. FINDINGS: There are scattered areas of fibroglandu lar density. There is a focal asymmetry measuring 0.6 centimeters in the right breast upper inner quadrant at 1 o'clock located 7 ce ntimeters from the nipple. This may represent fibroadenoma of fibrocystic ch maria del carmen. Patient presents for second-opinion inte rpretation. In the left breast, no dominant mass, di stortion, or suspicious calcifications are identified. Tomosynthesis performed in CC and MLO pr ojections. IMPRESSION: Focal asymmetry in the right breast requ ires additional imaging evaluation. An ultrasound exam is recommended. BI-RADS Category 0: Incomplete: Needs Additional Imaging Lor morris Performing Organization Address City/State/ZIP Code Phon e Number [facility] MAMMOGRAPHY UNILATERAL RIGHT (12/19/2020 11:36 PM CDT) Specimen Narrative [facility] - 01/11/2021 11:36 PM CDT Study acquired at another institution. For comparison only. No MD Peter originated interpretation requested or a vailable. Performing Organization Address City/State/ZIP Code Phon e Number [facility] US Breast (12/19/2020 11:35 PM CDT) Specimen Narrative [facility] - 01/11/2021 11:35 PM CDT Study acquired at another institution. For comparison only. No MD Peter originated interpretation requested or a vailable. Performing Organization Address City/State/ZIP Code Phon e Number [facility] Mammo (11/22/2020 11:31 PM CDT) Specimen Narrative [facility] - 01/11/2021 11:31 PM CDT Study acquired at another institution. For comparison only. No MD Peter originated interpretation requested or a vailable. Performing Organization Address City/State/ZIP Code Phon e Number [facility] after 06/03/2020 Insurance Payer Benefit Plan / Subscriber ID Effective Dates Phone Addre ss Type Group MEDICARE MEDICARE PART [id number] 2010-Presen [id number] [facility] Medicare A AND B t 2 SOLUTIONS [address] [place] [address] GENERIC GENERIC [id number] 2010-Presen [phone] [address] [place] [address] Care Teams Relationship Specialty Start Date End Date Regla Marin PCP - External Referring Nurse Practitioner 12/26 [employer] [facility] Radha Burks [place], [place] [id number] Lois Alas APN PCP - General Cancer Prevention 01/18/[address] [place] [phone] (work)
[2021-06-03] MEDS ORDERED: dilTIAZem HCL 25 MG/5 ML VIAL IV ONE ×3 (03:51→04:39)
[2021-06-03 03:56] LABS: Protime INR 0.84
[2021-06-03 04:00] LABS: Absolute Lymphocytes (CBC) 1.6 K/uL (0.7-4.9); Lymphocytes % 39.7 % (15.3-44.8); MPV 7.5 fL (7.6-11.3); RBC Red Blood Cell Count 4.61 M/uL (3.86-4.86)
[2021-06-03 04:15] LABS: ALT/SGPT 22 U/L (12-78); AST/SGOT 16 U/L (15-37); Albumin 3.7 g/dL (3.4-5.0); Alkaline Phosphatase 64 U/L (45-117); BUN Blood Urea Nitrogen 25 mg/dL (7-18); Bicarbonate 25 mmol/L (21-32); Bilirubin Direct < 0.1 mg/dL (0-0.2); Bilirubin Total 0.2 mg/dL (0.2-1.0); Glucose Level 140 mg/dL (74-106); Magnesium 2.1 mg/dL (1.8-2.4); NT PRO-BNP 147 pg/mL (<450); Potassium 3.4 mmol/L (3.5-5.1); Protein, Total 7.5 g/dL (6.4-8.2); Sodium Level 142 mmol/L (136-145)
--- NOTE | 2021-06-03 04:32 | ER ---
Nurse's Notes [facility] Name: Isabel Wright Age: 75 yrs Sex: Female : 1945 Arrival Date: 06/03/2021 Time: 03:14 Bed 5 Private MD: Diagnosis: Atrial fibrillation with RVR, new onset Presentation: 06/03 03:30 Chief complaint: Patient states: Woke up out of sleep with palpitations, feeling heart lp1 racing, feeling anxious; Denies chest pain, shortness of breath, dizziness. Coronavirus screen: At this time, the client does not indicate any symptoms associated with coronavirus-19. Ebola Screen: No symptoms or risks identified at this time. Initial Sepsis Screen: Does the patient meet any 2 criteria? No. Patient's initial sepsis screen is negative. Does the patient have a suspected source of infection? No. Patient's initial sepsis screen is negative. Risk Assessment: Do you want to hurt yourself or someone else? Patient reports no desire to harm self or others. Onset of symptoms was June 03, 2021. 03:30 Method Of Arrival: Ambulatory lp1 03:30 Acuity: KARTHIK 2 lp1 03:33 Note Patient reports taking extra dose of Atenolol 50 mg PO at 0245. lp1 Historical: - Allergies: 03:32 Codeine; lp1 - Home Meds: 03:32 atenolol 50 mg Oral tab 1 tab once daily [Active]; Benadryl 25 mg Oral cap 1 cap once lp1 daily [Active]; montelukast 10 mg Oral tab 1 tab once daily [Active]; Purvi Oral [Active]; Flonase Nasal [Active]; - PMHx: 03:32 Hypertension; lp1 - PSHx: 03:32 None; lp1 - Immunization history:: Adult Immunizations up to date, Client reports receiving the 2nd dose of the Covid vaccine. - Social history:: Smoking status: Patient denies any tobacco usage or history of. Screenin:40 Abuse screen: Denies threats or abuse. Denies injuries from another. Nutritional as6 screening: No deficits noted. Tuberculosis screening: No symptoms or risk factors identified. Fall Risk None identified. Assessment: 03:39 General: Appears in no apparent distress. Behavior is cooperative, anxious. Pain: as6 Denies pain. Neuro: Level of Consciousness is awake, alert, obeys commands, Oriented to person, place, time, situation. Cardiovascular: Reports fatigue, Rhythm is atrial fibrillation with rapid ventricular response. Respiratory: Airway is patent Trachea midline Respiratory effort is even, unlabored, Respiratory pattern is regular, symmetrical. Derm: Skin is intact. Vital Signs: 03:30 BP 158 / 110; Pulse 137; Resp 18; Temp 98.7(O); Pulse Ox 98% on R/A; Weight 74.84 kg lp1 (R); Height 5 ft. 4 in. (162.56 cm); Pain 0/10; 04:30 BP 164 / 100; Pulse 81; Resp 14 S; Pulse Ox 97% on R/A; as6 05:30 BP 153 / 91; Pulse 74; Resp 15 S; Pulse Ox 99% on R/A; as6 06:34 BP 162 / 86; Pulse 70; Resp 15 S; Pulse Ox 98% on R/A; as6 03:30 Body Mass Index 28.32 (74.84 kg, 162.56 cm) lp1 ED Course: 03:14 Patient arrived in ED. wm 03:21 Logan Chris, PATRICIO is Primary Nurse. as6 03:22 Joce Presley MD is Attending Physician. mh7 03:30 Inserted saline lock: 20 gauge in right antecubital area, using aseptic technique. sm5 Blood collected. 03:32 Triage completed. lp1 03:32 Arm band placed on. lp1 03:33 Patient has correct armband on for positive identification. Placed in gown. Bed in low lp1 position. cake wrapper on. Pulse ox on. NIBP on. 03:34 Basic Metabolic Panel Sent. sm5 03:34 CBC with Diff Sent. sm5 03:34 LFT's Sent. sm5 03:34 Magnesium Sent. sm5 03:34 NT PRO-BNP Sent. sm5 03:34 PT-INR Sent. sm5 03:34 Troponin HS Sent. sm5 03:34 TSH Sent. sm5 04:10 XRAY Chest (1 view) In Process Unspecified. EDMS 04:31 Luis Erickson is Hospitalizing Provider. 7 06:34 No provider procedures requiring assistance completed. Patient admitted, IV remains in as6 place. Administered Medications: 03:54 Drug: Diltiazem 15 mg Route: IVP; Site: right antecubital; as6 06:35 Follow up: Response: No adverse reaction as6 04:49 Drug: Diltiazem 5 mg/hr Route: IV; Rate: calculated rate; Site: right antecubital; as6 06:35 Follow up: Response: No adverse reaction; IV Status: Infusion continued upon admission as6 05:37 Not Given (Patient Refused): Lovenox (enoxaparin) 1 mg/kg Sub-Q once as6 Outcome: 04:31 Decision to Hospitalize by Provider. 7 06:35 Admitted to ER Hold. [facility] further documentation. as6 06:35 Condition: stable 06:35 Instructed on the need for admit. 16:00 Patient left the ED. Signatures: Dispatcher [employer] EDAlexia Chen RN RN ss Kristen Ballesteros RN RN lp1 Joce Presley MD MD 7 Adelaide Stinson Ashby, RN RN as6 Tamera Warren RN RN 5
--- NOTE | 2021-06-03 04:32 | EDPHYS ---
Physician Documentation [facility] Name: Isabel Wright Age: 75 yrs Sex: Female : 1945 Arrival Date: 06/03/2021 Time: 03:14 Bed 5 Private MD: ED Physician Joce Presley HPI: 06/03 03:46 This 75 yrs old Female presents to ER via Ambulatory with complaints of Palpitations, mh7 Racing heartbeat, Anxiety, High Blood Pressure. 03:47 The patient presents with a history of irregular heart beat, heart racing. mh7 03:47 Context: The symptoms occur during sleep. Onset: The symptoms/episode began/occurred mh7 today. Duration: The patient or guardian reports a single episode, that is still ongoing. Modifying factors: The symptoms are aggravated by anxiety, The symptoms are alleviated by nothing. Associated signs and symptoms: Pertinent positives: anxiety, Pertinent negatives: chest pain, cough, fever, lightheadedness, nausea, SOB, syncope, near-syncope, unusual stressors, vertigo, vomiting. Severity of symptoms: At their worst the symptoms were moderate today, in the emergency department the symptoms are unchanged. Historical: - Allergies: 03:32 Codeine; lp1 - Home Meds: 03:32 atenolol 50 mg Oral tab 1 tab once daily [Active]; Benadryl 25 mg Oral cap 1 cap once lp1 daily [Active]; montelukast 10 mg Oral tab 1 tab once daily [Active]; Purvi Oral [Active]; Flonase Nasal [Active]; - PMHx: 03:32 Hypertension; lp1 - PSHx: 03:32 None; lp1 - Immunization history:: Adult Immunizations up to date, Client reports receiving the 2nd dose of the Covid vaccine. - Social history:: Smoking status: Patient denies any tobacco usage or history of. ROS: 03:47 Constitutional: Negative for fever, chills, and weight loss, Eyes: Negative for injury, mh7 pain, redness, and discharge, ENT: Negative for injury, pain, and discharge, Neck: Negative for injury, pain, and swelling, Respiratory: Negative for shortness of breath, cough, wheezing, and pleuritic chest pain, Abdomen/GI: Negative for abdominal pain, nausea, vomiting, diarrhea, and constipation, Back: Negative for injury and pain, : Negative for injury, bleeding, discharge, and swelling, MS/Extremity: Negative for injury and deformity, Skin: Negative for injury, rash, and discoloration, Neuro: Negative for headache, weakness, numbness, tingling, and seizure, Allergy/Immunology: Negative for hives, rash, and allergies, Endocrine: Negative for neck swelling, polydipsia, polyuria, polyphagia, and marked weight changes, Hematologic/Lymphatic: Negative for swollen nodes, abnormal bleeding, and unusual bruising. Exam: 03:47 Constitutional: This is a well developed, well nourished patient who is awake, alert, mh7 and in no acute distress. Head/Face: Normocephalic, atraumatic. Eyes: Pupils equal round and reactive to light, extra-ocular motions intact. Lids and lashes normal. Conjunctiva and sclera are non-icteric and not injected. Cornea within normal limits. Periorbital areas with no swelling, redness, or edema. Neck: Trachea midline, no thyromegaly or masses palpated, and no cervical lymphadenopathy. Supple, full range of motion without nuchal rigidity, or vertebral point tenderness. No Meningismus. Chest/axilla: Normal chest wall appearance and motion. Nontender with no deformity. No lesions are appreciated. 03:47 Respiratory: Lungs have equal breath sounds bilaterally, clear to auscultation and percussion. No rales, rhonchi or wheezes noted. No increased work of breathing, no retractions or nasal flaring. Abdomen/GI: Soft, non-tender, with normal bowel sounds. No distension or tympany. No guarding or rebound. No evidence of tenderness throughout. Back: No spinal tenderness. No costovertebral tenderness. Full range of motion. Skin: Warm, dry with normal turgor. Normal color with no rashes, no lesions, and no evidence of cellulitis. MS/ Extremity: Pulses equal, no cyanosis. Neurovascular intact. Full, normal range of motion. Neuro: Awake and alert, GCS 15, oriented to person, place, time, and situation. Cranial nerves II-XII grossly intact. Motor strength 5/5 in all extremities. Sensory grossly intact. Cerebellar exam normal. Normal gait. Psych: Awake, alert, with orientation to person, place and time. Behavior, mood, and affect are within normal limits. 03:47 Cardiovascular: Rate: tachycardic, Rhythm: irregularly irregular, Pulses: no pulse deficits are appreciated, Heart sounds: normal, normal S1and S2, Edema: is not appreciated, JVD: is not appreciated. Vital Signs: 03:30 BP 158 / 110; Pulse 137; Resp 18; Temp 98.7(O); Pulse Ox 98% on R/A; Weight 74.84 kg lp1 (R); Height 5 ft. 4 in. (162.56 cm); Pain 0/10; 04:30 BP 164 / 100; Pulse 81; Resp 14 S; Pulse Ox 97% on R/A; as6 05:30 BP 153 / 91; Pulse 74; Resp 15 S; Pulse Ox 99% on R/A; as6 06:34 BP 162 / 86; Pulse 70; Resp 15 S; Pulse Ox 98% on R/A; as6 03:30 Body Mass Index 28.32 (74.84 kg, 162.56 cm) lp1 MDM: 04:30 Differential diagnosis: arrythmia, dehydration, stress disorder. Data reviewed: vital [facility] signs, nurses notes, old medical records, lab test result(s), cardiac enzymes, CBC, electrolytes, EKG, radiologic studies, plain films. Data interpreted: Pulse oximetry: on room air is 98 %. Interpretation: normal. Counseling: I had a detailed discussion with the patient and/or guardian regarding: the historical points, exam findings, and any diagnostic results supporting the discharge/admit diagnosis, the presence of at least one elevated blood pressure reading (>120/80) during this emergency department visit, lab results, radiology results, the need for further work-up and treatment in the hospital. Response to treatment: the patient's symptoms have markedly improved after treatment. 04:31 Patient medically screened. 06/03 03:31 Order name: Basic Metabolic Panel; Complete Time: 04:06/03 03:31 Order name: CBC with Diff; Complete Time: 04:06/03 03:31 Order name: LFT's; Complete Time: 04:06/03 03:31 Order name: Magnesium; Complete Time: 04:06/03 03:31 Order name: NT PRO-BNP; Complete Time: 04:06/03 03:31 Order name: PT-INR; Complete Time: 04:25 06/03 03:31 Order name: Troponin HS; Complete Time: 04:25 06/03 03:31 Order name: XRAY Chest (1 view) [facility] 06/03 03:31 Order name: TSH; Complete Time: 04:25 [facility] 06/03 03:32 Order name: COVID-19/FLU A+B (Document "Date of Onset" if Symptomatic); Complete Time: 06:03 06/03 07:13 Order name: T4 Free [facility] 06/03 03:31 Order name: EKG; Complete Time: 03:32 06/03 03:31 Order name: Cardiac monitoring; Complete Time: 03:34 06/03 03:31 Order name: EKG - Nurse/Tech; Complete Time: 03:34 06/03 03:31 Order name: IV Saline Lock; Complete Time: 03:34 [facility] 06/03 03:31 Order name: Labs collected and sent; Complete Time: 03:34 06/03 03:31 Order name: O2 Per Protocol; Complete Time: 03:34 06/03 03:31 Order name: O2 Sat Monitoring; Complete Time: 03:34 06/03 04:42 Order name: CONS Physician Consult EDIN Administered Medications: 03:54 Drug: Diltiazem 15 mg Route: IVP; Site: right antecubital; as6 06:35 Follow up: Response: No adverse reaction as6 04:49 Drug: Diltiazem 5 mg/hr Route: IV; Rate: calculated rate; Site: right antecubital; as6 06:35 Follow up: Response: No adverse reaction; IV Status: Infusion continued upon admission as6 05:37 Not Given (Patient Refused): Lovenox (enoxaparin) 1 mg/kg Sub-Q once as6 Disposition Summary: 06/03/21 04:31 Hospitalization Ordered Hospitalization Status: Inpatient Admission [facility] Provider: Luis Erickson Sage Condition: Stable [facility] Problem: new [facility] Symptoms: have improved [facility] Bed/Room Type: Standard [facility] Location: [facility] ER HOLD(06/03/21 14:44) Room Assignment: ERHOLD-(06/03/21 15:59) ss Diagnosis - Atrial fibrillation with RVR, new onset 7 Forms: - Medication Reconciliation Form mh7 - SBAR form mh7 Signatures: Dispatcher [employer] EDMS Mandi Hartman RN RN Clarice Sher RN RN Alexia Goodman RN RN Kristen Ballesteros RN RN lp1 Joce Presley MD MD mh7 Logan Chris RN RN as6 Corrections: (The following items were deleted from the chart) 04:37 04:31 Telemetry/MedSurg (Inpatient) mh7 mw 04:37 04:31 mh7 mw 12:38 04:37 [facility] ER HOLD mw dw 12:38 04:37 ERHOLD- mw dw 12:50 12:38 Telemetry/MedSurg (Inpatient) dw ss 12:50 12:38 232 dw ss 14:44 12:50 Telemetry/MedSurg (Inpatient) ss dw 14:44 12:50 208 ss dw 15:59 14:44 dw ss
[2021-06-03] MEDS ORDERED: NA CHLORIDE 0.9% 100 ML ONE (04:33)
[2021-06-03] MEDS ORDERED: ENOXAPARIN 80 MG/0.8 ML SQ ONE (04:57)
--- NOTE | 2021-06-03 05:13 | P.HP ---
Certification for Inpatient Patient admitted to: Inpatient With expected LOS: <2 Midnights Patient will require the following post-hospital care: None Practitioner: I am a practitioner with admitting privileges, knowledge of patient current condition, hospital course, and medical plan of care. Services: Services provided to patient in accordance with Admission requirements found in Title 42 Section 412.3 of the Code of Federal Regulations Patient History Date of Service: 06/03/21 Primary Care Provider: Aleksey Reason for admission: afib with rvr History of Present Illness: Ms. Wright is a 75 yo F with HTN who woke up at 2am this morning with heart palpitations. She took 50mg of her home atenolol but when the palpitations co ntinued she decided to come in when it didn't resolve. She reports feeling anxious. Denies nausea, vomiting, SOB. She had an ECHO done last month, and a Holter monitor 6 months ago. She reports no history of atrial fibrillation. She received IV cardizem in the ED and HR has improved to the 70s. K 3.4 Cl 109 BUN 5 GFR 68 Glu 140 Allergies codeine Allergy (Verified 12/27/18 14:35) Itching Home Medications: Fexofenadine HCl [Purvi Allergy] 60 mg PO BID 12/27/18 Furosemide [Lasix] 40 mg PO DAILY 12/27/18 Montelukast Sodium 10 mg PO DAILY 12/27/18 atenoloL [Tenormin] 50 mg PO [id number] 12/27/18 - Past Medical/Surgical History Diabetic: No -: HTN Past Surgical History: Patient denies surgical history - Family History Family History: Reviewed- Non-Contributory - Social History Smoking Status: Former smoker Alcohol use: Yes CD- Drugs: No Caffeine use: No Place of Residence: Home Review of Systems 10-point ROS is otherwise unremarkable General: Unremarkable Eyes: Unremarkable ENT: Unremarkable Respiratory: Unremarkable Cardiovascular: Palpitations Gastrointestinal: Unremarkable Genitourinary: Unremarkable Musculoskeletal: Unremarkable Integumentary: Unremarkable Neurological: Unremarkable Lymphatics: Unremarkable Physical Examination - Physical Exam General: Alert, In no apparent distress HEENT: Atraumatic, PERRLA, Mucous membr. moist/pink, EOMI, Sclerae nonicteric Neck: Supple, 2+ carotid pulse no bruit, No LAD, Without JVD or thyroid abnormality Respiratory: Clear to auscultation bilaterally, Normal air movement Cardiovascular: Normal S1 S2, Irregular heart rate/rhythm Gastrointestinal: Normal bowel sounds, No tenderness Musculoskeletal: No tenderness Integumentary: No rashes Neurological: Normal speech, Normal strength at 5/5 x4 extr, Normal tone, Normal affect Lymphatics: No axilla or inguinal lymphadenopathy - Studies Laboratory Data (last 24 hrs) 06/03/21 03:31: PT 9.6, INR 0.84 06/03/21 03:31: WBC 4.00 L, Hgb 13.6, Hct 40.0, Plt Count 249 06/03/21 03:31: Sodium 142, Potassium 3.4 L, BUN 25 H, Creatinine 0.82, Glucose 140 H, Magnesium 2.1, Total Bilirubin 0.2, AST 16, ALT 22, Alkaline Phosphatase 64 Assessment and Plan - Problems (Diagnosis) (1) Atrial fibrillation with RVR Current Visit: Yes Status: Acute (2) HTN (hypertension) Current Visit: Yes Status: Chronic Qualifiers: Hypertension type: primary hypertension Qualified Code(s): I10 - Essential (primary) hypertension - Plan cardiology consulted ECHO pending continue cardizem drip IV hydralazine PRN continue full dose lovenox potassium replacement protocol reconcile and continue home medications Discharge Plan: Home Plan to discharge in: 24 Hours - Advance Directives Does patient have a Living Will: Yes Does patient have a Durable POA for Healthcare: Yes - Code Status/Comfort Care Code Status Assessed: Yes (full code ) Critical Care: No Time Spent Managing Pts Care (In Minutes): 70
[2021-06-03 05:38] LABS: SARS-COV-2 RT PCR NEGATIVE (NEGATIVE)
[2021-06-03] MEDS ORDERED: ONDANSETRON 4 MG/2 ML VIAL IV PRN (06:21)
[2021-06-03] MEDS ORDERED: DILTIAZEM INJ 125 MG in NA CHLORIDE 0.9% 100 ML IV SCH (06:21)
[2021-06-03] MEDS ORDERED: HYDRALAZINE HCL 20 MG/ML VIAL IV PRN (06:21)
[2021-06-03] MEDS ORDERED: ACETAMINOPHEN 500 MG TAB PO PRN (06:21)
[2021-06-03] MEDS ORDERED: INSULIN -REGULAR HUMAN 50 UNIT/0.5 ML ML SQ SCH (07:30)
[2021-06-03 09:19] VITALS: BMI 28.3
--- NOTE | 2021-06-03 09:26 | RAD REPORT ---
EXAM DESCRIPTION: RAD - Chest Single View - 06/03/2021 4:10 am CLINICAL HISTORY: PALPITATIONS Chest pain. COMPARISON: Chest Pa And Lat (2 Views) dated 12/21/2020; Chest Pa And Lat (2 Views) dated 07/14/2019 FINDINGS: Portable technique limits examination quality. Calcified granuloma is present left mid lung. Small opacities in both lung bases likely linear atelec tasis. The lungs are otherwise clear. The heart is normal in size. No displaced fractures.
[2021-06-03 16:15] VITALS: O2SAT 98
--- NOTE | 2021-06-03 17:05 | P.DS ---
Admission Date: 06/03/21 Discharge Date: 06/03/21 Primary Care Provider: Aleksey Disposition: ROUTINE DISCHARGE Discharge Condition: GOOD Reason for Admission: afib with rvr Hospital Course: Patient is a 75-year-old female who was admitted overnight for rapid A. fib. She required oral diltiazem infusion and was successfully weaned off. Her echocardiogram did not reveal any acute change. She is well-known to the cardiology services. She has been cleared by cardiology for discharge. Vital Signs/Physical Exam: Temp Pulse Resp BP Pulse Ox 97.9 F 61 18 141/76 H 98 06/03/21 08:00 06/03/21 12:00 06/03/21 12:00 06/03/21 12:00 06/03/21 12:00 General: Alert, In no apparent distress HEENT: Atraumatic, Normocephalic Respiratory: Other (Unlabored breathing) Musculoskeletal: No clubbing, No swelling, No contractures Neurological: Normal speech, Sensation intact, Normal affect Laboratory Data at Discharge: WBC 4.00 K/uL (4.3-10.9) L 06/03/21 03:31 Hgb 13.6 g/dL (12.0-15.0) 06/03/21 03:31 Hct 40.0 % (36.0-45.0) 06/03/21 03:31 Plt Count 249 K/uL (152-406) 06/03/21 03:31 PT 9.6 SECONDS (9.5-12.5) 06/03/21 03:31 INR 0.84 06/03/21 03:31 Sodium 142 mmol/L (136-145) 06/03/21 03:31 Potassium 3.4 mmol/L (3.5-5.1) L 06/03/21 03:31 BUN 25 mg/dL (7-18) H 06/03/21 03:31 Creatinine 0.82 mg/dL (0.55-1.3) 06/03/21 03:31 Glucose 140 mg/dL (74-106) H 06/03/21 03:31 Magnesium 2.1 mg/dL (1.8-2.4) 06/03/21 03:31 Total Bilirubin 0.2 mg/dL (0.2-1.0) 06/03/21 03:31 AST 16 U/L (15-37) 06/03/21 03:31 ALT 22 U/L (12-78) 06/03/21 03:31 Alkaline Phosphatase 64 U/L (45-117) 06/03/21 03:31 Home Medications: Fexofenadine HCl [Purvi Allergy] 60 mg PO BID 12/27/18 Montelukast Sodium 10 mg PO DAILY 12/27/18 atenoloL [Tenormin] 50 mg PO [id number] 12/27/18 Fluticasone [Flonase 50mcg Nasal [place]] 2 sprays NS DAILY 06/03/21 Physician Discharge Instructions: PROBLEM: Atrial Fibrillation GOAL: Clear understanding of disease process INSTRUCTIONS: - Increase davis of Atenolol to 100 mg once a day - Take 81 mg aspirin daily - Follow-up with Dr. Jang Diet: Activity: DME DME: Date Ordered: Name of Company: [employer] Services Needed: Name of Company: Date or Referral: IMMUNIZATION Influenza Vaccine Indicated: No Influenza Vaccine Given: Date Given: Pneumonia Vaccine Indicated: No Pneumonia Vaccine Given: Date Given: Followup: Joseph Ryder MD [Primary Care Provider] -
[2021-06-03] MEDS ORDERED: ENOXAPARIN 80 MG/0.8 ML SQ SCH (18:00)
[2021-06-03 18:16] VITALS: BP 142/78; TEMP 97.8
--- NOTE | 2021-06-04 08:16 | EKG ---
Test Date: 2021-06-03 Test Time: 15:05:03 Video Player Mechanic: ANGELIQUE MEASUREMENT RESULTS: Intervals: Rate: 68 AR: 190 QRSD: 72 QT: 390 QTc: 414 Weems: P: 74 AR: 190 QRS: 5 T: 41 INTERPRETIVE STATEMENTS: Normal sinus rhythm Anterior infarct, age undetermined Abnormal ECG Compared to ECG 06/03/2021 03:28:57 Myocardial infarct finding now present Atrial fibrillation no longer present ST (T wave) deviation no longer present Electronically Signed On 06-04-21 08:13:51 ASSEMBLY TECHNICIAN by Kunal Jang
--- NOTE | 2021-06-04 09:00 | ECHO ---
HEIGHT: 5 ft 4 in WEIGHT: 164 lb 15.903 oz DATE OF STUDY: 05/06/[address]: Sunil Ferrera 2-DIMENSIONAL: YES M.MODE: YES DOPPLER: YES COLOR FLOW: YES TDS: NO PORTABLE: NO DEFINITY: NO BUBBLE STUDY: NO DIAGNOSIS: ATIRIAL FIBIRILLATION WITH RAPID VENTRICULAR RESPONSE CARDIAC HISTORY: CATHERIZATION: NO SURGERY: NO PROSTHETIC VALVE: NO PACEMAKER: NO MEASUREMENTS (cm) DIASTOLIC (NORMALS) SYSTOLIC (NORMALS) IVSd 0.9 (0.6-1.2) LA Diam 2.7 (1.9-4.0) LVEF 63% LVIDd 3.1 (3.5-5.7) LVIDs 2.1 (2.0-3.5) %FS 33% LVPWd 1.2 (0.6-1.2) Ao Diam 2.5 (2.0-3.7) 2 DIMENSIONAL ASSESSMENT: RIGHT ATRIUM: NORMAL LEFT ATRIUM: NORMAL RIGHT VENTRICLE: NORMAL LEFT VENTRICLE: NORMAL TRICUSPID VALVE: NORMAL MITRAL VALVE: NORMAL PULMONIC VALVE: NORMAL AORTIC VALVE: NORMAL PERICARDIAL EFFUSION: NONE AORTIC ROOT: NORMAL LEFT VENTRICULAR WALL MOTION: NORMAL. DOPPLER/COLOR FLOW: MILD TRICUSPID REGURGITATION. COMMENTS: MILD TRICUSPID REGURGITATION. NORMAL LEFT VENTRICULAR SIZE AND FUNCTION. NO WALL MOTION ABNORMALITY. NO THROMBUS. TECHNOLOGIST: VERONICA RAMIREZ
--- NOTE | 2021-06-04 09:52 | CON ---
Date of Consultation: 06/03/2021 Reason For Consultation: New onset atrial fibrillation. History Of Present Illness: Ms. Wright is a 75. Has a history of hypertension, otherwise fairly heal thy. She takes atenolol at home with some allergy medications. Came in with episode of atrial fibri llation, received IV Cardizem, and converted to sinus rhythm. When she had atrial fibrillation, she felt short of breath, dizzy, and lightheaded, but no chest pain, nausea, vomiting, diaphoresis, PND, orthopnea, pedal edema, or syncope. Denied any fever or chills. Workup is negative, except for pota ssium 3.4. Past Medical History: Includes hypertension. Allergies: SHE IS ALLERGIC TO CODEINE. Medications: As listed earlier. Review of Systems: Negative. Social History: Negative. Family History: Negative. Physical Examination: Vital Signs: Stable, afebrile. HEENT: Negative. Neck: Supple with no bruit. Chest: Clear. Cardiac: Revealed a regular rhythm and rate. No murmurs, gallops, or rubs. Abdomen: Benign. Extremities: Revealed no clubbing, cyanosis, or edema. Diagnostic Data: Normal except for low potassium. Impression And Plan: Atrial fibrillation, new onset, converted to sinus rhythm, on Cardizem. Her ec hocardiogram has been done and is normal. I think we need to keep her on aspirin, double her atenolo l at home and she can go home. After that, I will see her in the office in the next week or 2. May consider doing a stress test. We have not had one. We will need to supplement her potassium when ayo youssef goes home. She does take some nasal allergy medicine atrial fibrillation. NB/MODL Voice ID: [id number] Report ID: [id number]
== END 2021-06-03 16:00 | disposition home or self-care (01) | DRG 310 ==
LOC: ER 03:08 → ERHOLD 05:18
PROVIDERS: ADMIT Internal Medicine; ATTEND Internal Medicine
DX: I48.91 Unspecified atrial fibrillation (principal); I10 Essential (primary) hypertension; Z20.822 Contact with and (suspected) exposure to COVID-19; Z87.891 Personal history of nicotine dependence
CPT/HCPCS: 0240U; 36415; 71045; 80048; 80076; 83735; 83880; 84439; 84443; 84484; 85025; 85610; 93005; 93306; 96365; 96366; 96375; 99285